=== PATIENT | female | born 1980 | race Caucasian/White ===

== ENCOUNTER 2017-08-01 19:12 | Emergency (ER) | payer MEDICAID ==
[~2017-08-01] VITALS: Ht 167.6 cm; Wt 116.5 kg
[2017-08-01 20:03] VITALS: Ht 167.6 cm; Wt 116.5 kg
[2017-08-02] MEDS ORDERED: ACETAMINOPHEN 325 MG TAB PO ONE
[2017-08-02] MEDS ORDERED: KETOROLAC 60 MG INJ IM STA
[2017-08-02 00:55] LABS: ADD UMIC NO; UR ASCORBIC ACID NEGATIVE (NEGATIVE); UR BILIRUBIN (Dip) NEGATIVE (NEGATIVE); UR BLOOD (Dip) NEGATIVE (NEGATIVE); UR CLARITY CLEAR (CLEAR); UR COLOR YELLOW (YELLOW); UR GLUCOSE (Dip) NEGATIVE (NEGATIVE); UR KETONES (Dip) NEGATIVE (NEGATIVE); UR LEUKOCYTE ESTERASE (Dip) NEGATIVE Leu/ul (NEGATIVE); UR NITRITE (Dip) NEGATIVE (NEGATIVE); UR TOTAL PROTEIN (Dip) NEGATIVE (NEGATIVE); UR UROBILINOGEN (Dip) 2+ mg/dL (NEGATIVE)
[2017-08-02] MEDS ORDERED: ACET500C5 PO (01:20)
--- NOTE | 2017-08-02 01:27 | ERD ---
ER Documentation Chief Complaint Chief Complaint right arm pain x 2 days. pain radiating to right shoulder. -trauma HPI 37-year-old female patient with no significant past medical history presents to the ED complaining of sore throat, right breast, right arm for a few days however, dysuria that started intermittently for the past 2 days. Patient also reports that when she has a fever, she has body aches. Denies any chest pain, shortness of breath, wheezing, nausea, vomiting. She had a few episodes of nonbloody non-mucoid diarrhea. ROS All systems reviewed and are negative except as per history of present illness. Medications Home Meds Active Scripts Acetaminophen* (Tylophen*) 500 Mg Capsule, 1 CAP PO Q6H Y for PAIN AND OR ELEVATED TEMP, #20 CAP Prov:HUMBERTO DAWSON PA-C 08/02/17 Allergies Allergies: Coded Allergies: No Known Allergy (Unverified , 08/01/17) PMhx/Soc Medical and Surgical Hx: pt denies Medical Hx History of Surgery: Yes () Anesthesia Reaction: No Hx Neurological Disorder: No Hx Respiratory Disorders: No Hx Cardiac Disorders: No Hx Psychiatric Problems: No Hx Miscellaneous Medical Probl: No Hx Alcohol Use: No Hx Substance Use: No Hx Tobacco Use: No Smoking Status: Never smoker Physical Exam Vitals Vital Signs Date Time Temp Pulse Resp B/P Pulse Ox O2 Delivery O2 Flow Rate FiO2 08/02/17 01:36 98.1 71 18 134/72 98 Room Air 08/01/17 20:03 100.4 80 18 142/69 98 Physical Exam Const: Zyt-blg-hbcwcvovh, well-nourished. In no acute distress. Head: Atraumatic, normocephalic Eyes: Normal Conjunctiva without injection. No purulent discharge. PERRL. EOMI ENT: Normal external ear. Ear canal without erythema. Tympanic membrane pearly hopkins without effusion or bulging. Nasal canal clear with normal turbinates. Moist oropharynx without tonsillar exudates. Non-erythematous pharynx. Uvula midline. No drooling. No trismus. Neck: Full range of motion. No meningismus. No cervical lymphadenopathy. Resp: Clear to auscultation bilaterally. No wheezing, rhonchi, rales, or crackles. No accessory muscle use. No retractions. Cardio: Regular rate and rhythm. No murmurs, rubs or gallops. Abd: Soft, non tender, non distended. Normal bowel sounds. No palpable masses. No rebound tenderness. No guarding. Skin: No petechiae or rashes Back: No midline tenderness. No CVA tenderness. Ext: No cyanosis, or edema. Neur: Awake and alert. Psych: Normal Mood and Affect Results 24 hrs Laboratory Tests Test 08/02/17 00:20 Urine Color YELLOW Urine Clarity CLEAR Urine pH 6.0 Urine Specific [place] 1.020 Urine Ketones NEGATIVEmg/dL Urine Nitrite NEGATIVEmg/dL Urine Bilirubin NEGATIVEmg/dL Urine Urobilinogen 2+mg/dL Urine Leukocyte Esterase NEGATIVELeu/ul Urine Hemoglobin NEGATIVEmg/dL Urine Glucose NEGATIVEmg/dL Urine Total Protein NEGATIVEmg/dl Current Medications Medications (Trade) Dose Ordered Sig/Aylin Route PRN Reason Start Time Stop Time Status Last Admin Dose Admin Ketorolac Tromethamine (Toradol) 60 mg ONCE STAT IM 08/02/17 00:00 08/02/17 00:08 DC 08/02/17 00:23 Acetaminophen (Tylenol Tab) 650 mg ONCE ONCE PO 08/02/17 00:00 08/02/17 00:08 DC 08/02/17 00:23 Procedures/MDM 37-year-old female patient with no significant past medical history presents to the ED complaining of body aches, dysuria, sore throat, diarrhea, right breast pain that started 2 days ago. Patient has had a low-grade fever of 100.4. Patient was given Tylenol here in the ED. Patient was also given Toradol here in the ED with improvement of her symptoms. Urinalysis shows no leukocyte esterase, hematuria, nitrite. Negative urine . Rapid strep is negative. Pending throat culture. Low suspicion gastritis, atypical MT, pneumonia, pleural effusion, pneumothorax, GERD, peptic ulcer disease, cholecystitis, choledocholithiasis, cholangitis, pancreatitis, appendicitis, bowel obstruction, ileus, volvulus, nephrolithiasis, pyelonephritis, hepatitis, perforated viscus, diverticulitis, acute abdomen, AAA, strangulated/ incarcerated hernia, aortic dissection, DKA, mesenteric ischemia or other emergent conditions. Discharge medications: Tylenol Follow up with primary care physician in 1-2 days. Instructed patient to return to the ED sooner for any worsening symptoms. Patient's questions were answered. Patient understood and agreed with discharge plan. Patient discharged stable. Departure Diagnosis: Primary Impression: Multiple complaints Condition: Stable Patient Instructions: Self-Care for Sore Throats, Dysuria, Uncertain Cause ( Adult), Viral Syndrome (Adult) Referrals: [facility] YOU HAVE RECEIVED A MEDICAL SCREENING EXAM AND THE RESULTS INDICATE THAT YOU DO NOT HAVE A CONDITION THAT REQUIRES URGENT TREATMENT IN THE EMERGENCY DEPARTMENT. FURTHER EVALUATION AND TREATMENT OF YOUR CONDITION CAN WAIT UNTIL YOU ARE SEEN IN YOUR DOCTORS OFFICE WITHIN THE NEXT 1-2 DAYS. IT IS YOUR RESPONSIBILITY TO MAKE AN APPOINTMENT FOR FOLOW-UP CARE. IF YOU HAVE A PRIMARY DOCTOR --you should call your primary doctor and schedule an appointment IF YOU DO NOT HAVE A PRIMARY DOCTOR YOU CAN CALL OUR PHYSICIAN REFERRAL HOTLINE AT IF YOU CAN NOT AFFORD TO SEE A PHYSICIAN YOU CAN CHOSE FROM THE FOLLOWING [facility] [address] [facility]. [facility] [address] [facility] [address] [facility] [address] [facility] [address] [facility] [facility] [address] [facility] [facility] YOU HAVE RECEIVED A MEDICAL SCREENING EXAM AND THE RESULTS INDICATE THAT YOU DO NOT HAVE A CONDITION THAT REQUIRES URGENT TREATMENT IN THE EMERGENCY DEPARTMENT. FURTHER EVALUATION AND TREATMENT OF YOUR CONDITION CAN WAIT UNTIL YOU ARE SEEN IN YOUR DOCTORS OFFICE WITHIN THE NEXT 1-2 DAYS. IT IS YOUR RESPONSIBILITY TO MAKE AN APPOINTMENT FOR FOLOW-UP CARE. IF YOU HAVE A PRIMARY DOCTOR --you should call your primary doctor and schedule and appointment IF YOU DO NOT HAVE A PRIMARY DOCTOR YOU CAN CALL OUR PHYSICIAN REFERRAL HOTLINE AT . IF YOU CAN NOT AFFORD TO SEE A PHYSICIAN YOU CAN CHOSE FROM THE FOLLOWING [facility] INSTITUTIONS: [facility] [address] [place] [address] [facility] [address] [place] [address] [facility] [place] [address] [place] [address] [facility]/SPECIALTIES Additional Instructions: Llame al doctor MAANA y terese selene RUPETR PARA DENTRO DE 2-3 PURCELL.Dgale a la secretaria que nosotros le instruimos hacer esta rupert.Avise o llame si baldwin condicin se empeora antes de la rupert. Regresa aqui si peor o no mejor. Si usted contina sufriendo de dolor de pecho, regrese al Ed en 8 horas para selene ecografa de la mama. HUMBERTO DAWSON PA-C Aug 02, 2017 01:27
[2017-08-02 01:36] VITALS: BP 134/72; PULSE 71; RESP 18; TEMP 98.1
== END 2017-08-02 01:38 | disposition home or self-care (01) ==
LOC: FTE 19:12
DX: J02.9 Acute pharyngitis, unspecified (principal); N64.4 Mastodynia; M79.601 Pain in right arm; R30.0 Dysuria
CPT/HCPCS: 81003; 87880; 96372; J1885; Z7502; Z7610

== ENCOUNTER 2017-10-02 19:28 | Emergency (ER) | END 2017-10-03 01:05 | disposition home or self-care (01) ==

== ENCOUNTER 2018-01-13 05:51 | Emergency (ER) | END 2018-01-13 07:21 | disposition home or self-care (01) ==

== ENCOUNTER 2018-02-04 08:29 | Emergency (ER) | END 2018-02-04 12:27 | disposition home or self-care (01) ==

== ENCOUNTER 2018-03-01 08:33 | Emergency (ER) | END 2018-03-01 10:53 | disposition home or self-care (01) ==

== ENCOUNTER 2018-12-17 10:58 | Emergency (ER) | payer SELFPAY ==
[~2018-12-17] VITALS: Ht 165.1 cm; Wt 116.6 kg
[~2018-12-17 10:58] MED LIST: ACET500C5 PO; CEPH500C PO; CYCL10TA7 PO; IBUP-1542 PO; IBUP800T48 PO; NAPR-985 PO; PHEN-538 PO
[2018-12-17 11:02] VITALS: Ht 165.1 cm; Wt 116.6 kg
[2018-12-17] MEDS ORDERED: IBUPROFEN 600 MG TAB PO ONE (12:00)
--- NOTE | 2018-12-17 12:13 | ERD ---
ER Documentation Chief Complaint Chief Complaint RT KNEE PAIN X 2 DAYS HPI 38-year-old female with no significant past medical history presenting to the emergency department complaining of right knee pain which began 1 month ago after a trip and fall directly onto the anterior portion of the knee. Current pain is rated 8/10 in severity and worse with walking. She took ibuprofen at home with some relief. Additional symptoms include swelling. She denies any head injury or loss of consciousness or other symptoms or injuries at this time. ROS All systems reviewed and are negative except as per history of present illness. Medications Home Meds Active Scripts Naproxen* (Naprosyn*) 500 Mg Tablet, 500 MG PO BID PRN for PAIN AND/OR INFLAMMATION, #30 TAB Prov:GARRY CAMPBELL PA-C 12/17/18 Cyclobenzaprine Hcl* (Cyclobenzaprine Hcl*) 10 Mg Tablet, 10 MG PO Q12 PRN for MUSCLE SPASMS, #20 TAB Prov:PASILABAN,KLAR F 03/01/18 Ibuprofen* (Motrin*) 800 Mg Tab, 800 MG PO Q6H PRN for PAIN AND OR ELEVATED TEMP, #30 TAB Prov:PASILABAN,KLAR F 03/01/18 Ibuprofen* (Motrin*) 800 Mg Tab, 800 MG PO Q6H PRN for PAIN AND OR ELEVATED TEMP, #30 TAB Prov:MELISSA UNGER PA-C 02/04/18 Acetaminophen* (Tylophen*) 500 Mg Capsule, 2 CAP PO Q8H PRN for PAIN AND OR ELEVATED TEMP, #20 CAP Prov:MELISSA UNGER PA-C 02/04/18 Naproxen* (Naprosyn*) 500 Mg Tablet, 500 MG PO BID PRN for PAIN AND/OR INFLAMMATION, #30 TAB Prov:LOBO CELAYA PA-C 01/13/18 Ibuprofen* (Motrin*) 600 Mg Tab, 600 MG PO Q6, #30 TAB Prov:BRIAN,VEL 10/03/17 Phenazopyridine Hcl* (Pyridium*) 200 Mg Tab, 200 MG PO TID for 2 Days, #6 TAB Prov:BRIAN,VEL 10/03/17 Cephalexin* (Cephalexin*) 500 Mg Capsule, 500 MG PO Q8 for 10 Days, #30 CAP Prov:BRIAN,VEL 10/03/17 Acetaminophen* (Tylophen*) 500 Mg Capsule, 1 CAP PO Q6H PRN for PAIN AND OR ELEVATED TEMP, #20 CAP Prov:HUMBERTO DAWSON PA-C 08/02/17 Allergies Allergies: Coded Allergies: No Known Allergy (Unverified , 03/01/18) PMhx/Soc History of Surgery: No Anesthesia Reaction: No Hx Neurological Disorder: No Hx Respiratory Disorders: No Hx Cardiac Disorders: No Hx Psychiatric Problems: No Hx Miscellaneous Medical Probl: No Hx Alcohol Use: Yes (rarely) Hx Substance Use: No Hx Tobacco Use: No FmHx Family History: No diabetes Physical Exam Vitals Vital Signs Date Temp Pulse Resp B/P (MAP) Pulse Ox O2 O2 Flow FiO2 Time Delivery Rate 12/17/18 99.0 76 16 145/60 100 11:02 (88) Physical Exam Const: No acute distress Head: Atraumatic Eyes: Normal Conjunctiva ENT: Normal External Ears, Nose and Mouth. Neck: Full range of motion. No meningismus. Resp: Clear to auscultation bilaterally Cardio: Regular rate and rhythm, no murmurs Abd: Soft, non tender, non distended. Normal bowel sounds Skin: No petechiae or rashes Back: No midline or flank tenderness Ext: No cyanosis, or edema Neur: Awake and alert Psych: Normal Mood and Affect Results 24 hrs Current Medications Medications Dose Sig/Aylin Start Time Status Last (Trade) Ordered Route PRN Stop Time Admin Dose Reason Admin Ibuprofen 600 mg ONCE ONCE 12/17/18 DC 12/17/18 (Motrin) PO 12:00 12:19 12/17/18 12:01 [place] [address] Radiology Main Line: [phone] DIAGNOSTIC IMAGING REPORT Patient: THERESA KRAMER : 1980 Age: 38 Sex: F MR #: [id number] DOS: 12/17/18 0000 Ordering MD: GARRY CAMPBELL PA-C Location: [facility] Room/Bed: PROCEDURE: RIGHT knee x-ray CLINICAL INDICATION: Knee pain TECHNIQUE: AP, lateral and tunnelviews of the knee were obtained. COMPARISON: None FINDINGS: There is normal mineralization. No acute fracture or dislocation is seen. There is no joint effusion. There are small osteophytes in the lateral compartment of the right knee. There is no significant soft tissue swelling. RPTAT: AA IMPRESSION: Small osteophytes in the lateral compartment of the right knee. No acute fracture. .Vito Alexander MD, MD Date Time Electronically viewed and signed by .Vito Alexander MD, on 12/17/2018 12:26 .S/ CC: GARRY CAMPBELL PA-C [phone] Procedures/MDM 38-year-old female presenting the emergency department complaining of right knee pain after fall a month ago. X-ray was negative for any sign of fracture. The full report from the radiologist may be viewed above. I suspect a ligamental or tendon injury. The patient required splinting for immobilization of possible occult fracture or ligamental/tendon injury.Splint Assessment: Neurovascularly intact post splint placement with good fit. Patient's extremity symptoms have stabilized while they have been evaluated in the department and are appropriate for outpatient follow up. No evidence of compartment syndrome, neurologic injury, vascular injury, open joint, open fracture, tendon laceration, or foreign body. Patient's blood pressure was elevated (>120/80) but appears stable without evidence of hypertension emergency or urgency. The patient is to follow-up and pursue outpatient monitoring and therapy with their primary care physician within 1 week and return immediately if they have any new, worsening, or concerning symptoms. Departure Diagnosis: Primary Impression: Knee injury Encounter type: initial encounter Laterality: right Qualified Codes: S89.91XA - Unspecified injury of right lower leg, initial encounter Condition: GARRY Miles PA-C Dec 17, 2018 12:13
[2018-12-17] MEDS ORDERED: NAPR-985 PO (12:33)
== END 2018-12-17 14:04 | disposition home or self-care (01) ==
LOC: FTE 10:58
DX: S89.91XA Unspecified injury of right lower leg, initial encounter (principal); W01.0XXA Fall on same level from slipping, tripping and stumbling without subsequent striking against object, initial encounter; Y92.9 Unspecified place or not applicable
CPT/HCPCS: 73562

== ENCOUNTER 2019-03-17 16:41 | Emergency (ER) | payer MEDICAID ==
[~2019-03-17] VITALS: Ht 167.6 cm; Wt 119.1 kg
[2019-03-17 17:04] VITALS: Ht 167.6 cm; Wt 119.1 kg
[2019-03-17] MEDS ORDERED: SOD CHLORIDE 0.9% 500 ML IV STA (18:46)
[2019-03-17] MEDS ORDERED: METOCLOPRAMIDE 10 MG INJ IV STA (18:46)
[2019-03-17] MEDS ORDERED: KETOROLAC 30 MG INJ IV STA (18:46)
--- NOTE | 2019-03-17 18:54 | ERD ---
ER Documentation Chief Complaint Chief Complaint headache and vomitting about 2 hrs HPI 38-year-old female with no reported past medical history who presents with complaint of headache and vomiting over the past several hours. Describes headache as frontal type headache with associated 2 episodes of nonbilious nonb loody vomiting, intermittent nausea, blurry vision bilaterally. States she suffered headaches in the past but this headache is by far the worst type of headache she has had. She otherwise denies lower extremity or upper extremity weakness or numbness. She otherwise denies chest pain, dizziness, third speech, syncope, recent trauma or fall, shortness of breath, dyspnea, abdominal pain, recent drug or alcohol use. At time of evaluation patient is alert and oriented answering all questions with the use of application integration architect. Nontoxic-appearing moving all extremities with a reassuring examination. ROS All systems reviewed and are negative except as per history of present illness. Medications Home Meds Active Scripts Qfquqpmadp-Bxuaybueojhro-Xsllxfcn* (Fioricet*) 50-300-40 Mg Capsule, 1 CAP PO Q4H PRN for HEADACHE for 5 Days, CAP Prov:OKSANA BAH PA-C 03/17/19 Ondansetron (Ondansetron Odt) 4 Mg Tab.rapdis, 4 MG PO Q6H PRN for NAUSEA AND/OR VOMITING, #10 TAB Prov:OKSANA BAH PA-C 03/17/19 Diphenhydramine Hcl* (Benadryl*) 25 Mg Cap, 25 MG PO Q6, #30 CAP Prov:OKSANA BAH PA-C 03/17/19 Naproxen* (Naprosyn*) 500 Mg Tablet, 500 MG PO BID PRN for PAIN AND/OR INFLAMMATION, #30 TAB Prov:OKSANA BAH PA-C 03/17/19 Naproxen* (Naprosyn*) 500 Mg Tablet, 500 MG PO BID PRN for PAIN AND/OR INFLAMMATION, #30 TAB Prov:GARRY CAMPBELL PA-C 12/17/18 Cyclobenzaprine Hcl* (Cyclobenzaprine Hcl*) 10 Mg Tablet, 10 MG PO Q12 PRN for MUSCLE SPASMS, #20 TAB Prov:AUDELIA VILLAGOMEZ 03/01/18 Ibuprofen* (Motrin*) 800 Mg Tab, 800 MG PO Q6H PRN for PAIN AND OR ELEVATED TEMP, #30 TAB Prov:AUDELIA VILLAGOMEZ 03/01/18 Ibuprofen* (Motrin*) 800 Mg Tab, 800 MG PO Q6H PRN for PAIN AND OR ELEVATED TEMP, #30 TAB Prov:MELISSA UNGER PA-C 02/04/18 Acetaminophen* (Tylophen*) 500 Mg Capsule, 2 CAP PO Q8H PRN for PAIN AND OR ELEVATED TEMP, #20 CAP Prov:MELISSA UNGER PA-C 02/04/18 Naproxen* (Naprosyn*) 500 Mg Tablet, 500 MG PO BID PRN for PAIN AND/OR INFLAMMATION, #30 TAB Prov:LOBO CELAYA PA-C 01/13/18 Ibuprofen* (Motrin*) 600 Mg Tab, 600 MG PO Q6, #30 TAB Prov:BRIAN,VEL 10/03/17 Phenazopyridine Hcl* (Pyridium*) 200 Mg Tab, 200 MG PO TID for 2 Days, #6 TAB Prov:BRIAN,VEL 10/03/17 Cephalexin* (Cephalexin*) 500 Mg Capsule, 500 MG PO Q8 for 10 Days, #30 CAP Prov:BRIAN,VEL 10/03/17 Acetaminophen* (Tylophen*) 500 Mg Capsule, 1 CAP PO Q6H PRN for PAIN AND OR ELEVATED TEMP, #20 CAP Prov:HUMBERTO DAWSON PA-C 08/02/17 Allergies Allergies: Coded Allergies: No Known Allergy (Unverified , 03/01/18) PMhx/Soc History of Surgery: No Anesthesia Reaction: No Hx Neurological Disorder: No Hx Respiratory Disorders: No Hx Cardiac Disorders: No Hx Psychiatric Problems: No Hx Miscellaneous Medical Probl: No Hx Alcohol Use: Yes (rarely) Hx Substance Use: No Hx Tobacco Use: No Smoking Status: Never smoker FmHx Family History: No diabetes, No coronary disease, No other Physical Exam Vitals Vital Signs Date Temp Pulse Resp B/P (MAP) Pulse Ox O2 O2 Flow FiO2 Time Delivery Rate 03/17/19 97.6 73 18 98/53 (68) 100 Room Air 20:20 03/17/19 98.3 78 18 149/71 99 17:04 (97) Physical Exam I have reviewed the triage vital signs. Const: Well nourished, well developed, appears stated age Eyes: PERRL, no conjunctival injection HENT: NCAT, Neck supple without meningismus, mild symmetric, no drooping, extraocular movements intact to all planes CV: RRR, Warm, well-perfused extremities RESP: CTAB, Unlabored respiratory effort GI: soft, non-tender, non-distended, no masses MSK: No gross deformities appreciated, 5 out of 5 strength to upper extremities bilaterally, 5 out of 5 strength bilateral lower extremities, SI LT throughout, multiple steps in examination room without issue, normal gait Skin: Warm, dry. No rashes Neuro: grossly non focal Psych: Appropriate mood and affect. Results 24 hrs Laboratory Tests Test 03/17/19 19:09 03/17/19 19:38 POC Beta HCG, Qualitative NEGATIVE Bedside Glucose 129 mg/dL Current Medications Medications Dose Sig/Aylin Start Time Status Last (Trade) Ordered Route PRN Stop Time Admin Dose Reason Admin Sodium 500 ml @ Q1H STAT 03/17/19 DC 03/17/19 Chloride 500 mls/hr IV 18:46 19:34 03/17/19 19:45 10 mg ONCE STAT 03/17/19 DC 03/17/19 Metoclopramid IV 18:46 19:35 e HCl 03/17/19 18:52 (Reglan) Ketorolac 30 mg ONCE STAT 03/17/19 DC 03/17/19 Tromethamine IV 18:46 19:35 (Toradol) 03/17/19 18:52 Procedures/MDM This patient presents with a headache most consistent with primary type headache. Differential diagnosis includes migraine versus tension type headache. No headache red flags. Neurologic exam without evidence of meningismus, focal neurologic findings. Presentation not consistent with acute intracranial bleed to include SAH (lack of risk factors, headache history). Presentation not consistent with acute RADIO ADJUSTER infection to include meningitis or brain abscess, Temporal arteritis unlikely, as is acute angle closure glaucoma given history and physical findings. Presentation not consistent with other acute, emergent causes of headache at this time. Plan to treat symptomatically with pain medication. No indication for imaging/LP at this time. Plan: pain medication, CT brain without acute finding, serial reassessment she with improvement in symptoms, discharged with appropriate pain medications, Benadryl, Zofran, Fioricet ED course: Toradol, Reglan DISPOSITION PLAN: We discussed follow up with the patient's primary care doctor within 24 to 48 hours. Patient counseled regarding my diagnostic impression and care plan. Prior to discharge all questions answered. Pt agrees with treatment plan and understands strict return precautions. Precautionary instructions provided i ncluding instructions to return to the ER if not improving or for any worsening or changing symptoms or concerns. Disclaimer: Inadvertent spelling and grammatical errors are likely due to EHR/dictation software use and do not reflect on the overall quality of patient care. Also, please note that the electronic time recorded on this note does not necessarily reflect the actual time of the patient encounter. Departure Condition: Stable OKSANA BAH PA-C Mar 17, 2019 18:54
[2019-03-17] MEDS ORDERED: NAPR-985 PO (20:10)
[2019-03-17] MEDS ORDERED: BUTA1CAP38 PO (20:10)
[2019-03-17] MEDS ORDERED: ONDA4TAB14 PO (20:10)
[2019-03-17] MEDS ORDERED: BEN25 PO (20:10)
[2019-03-17 20:20] VITALS: BP 98/53; PULSE 73; RESP 18
== END 2019-03-17 20:28 | disposition home or self-care (01) ==
LOC: FTE 16:41
DX: R51 Headache (principal); R11.2 Nausea with vomiting, unspecified
CPT/HCPCS: 70450; 81025; 82962; J1885; J2765; J7040; 96361; 96374; 96375